=== PATIENT | female | born 1945 | race Caucasian/White ===

== ENCOUNTER 2016-10-19 19:41 | Emergency (ER) | payer OTHER, BC ==
[~2016-10-19] VITALS: Ht 154.9 cm; Wt 67.0 kg
[~2016-10-19 19:41] MED LIST: ACTOS15 MG PO; ASPIR 8181 M1 PO; ASPIRIN81 M1 PO; AUGMENTIN875 MG PO; Ascorbic Acid,Ester- PO; CALCIUM500 M3 PO; CITALOPRAM HBR20 MG PO; CYANOCOBALAM1000 MCG PO; CYMBALTA60 MG PO; Cymbalta PO; DEXILANT60 MG PO; DIABETA,MICRONAS5 MG PO; DIABETA5 MG PO; Diabeta,Micronase PO; Evista PO; FEXOFENADINE H180 M1 PO; FIBER CAPSULE PO; FIBERCON625 MG PO; FOLIC ACID0.4 MG PO; FOLIC ACID0.8 MG PO; FOLIC ACID1 MG PO; Folvite PO; GEMFIBROZIL600 MG PO; GLYBURIDE5 MG PO; HUMIRA40 MG/0.8 SC; HYDROCODON-ACE1 EAC7 PO; IMDUR30 MG PO; INFUSION IV; JANUVIA100 MG PO; JANUVIA25 M1 PO; LIPITOR40 MG PO; LO-DOSE ASPIRIN81 M1 PO; LOPID600 MG PO; LOPRESSOR25 MG PO; METFORMIN HCL1000 MG PO; METHOTREXATE2.5 MG PO; METOPROLOL TART50 MG PO; MULTIVITAMIN1 EAC1 PO; PLAVIX75 MG PO; PROTONIX40 MG PO; REGLAN5 MG PO; REQUIP0.5 MG PO; SOTALOL80 MG PO; TOPROL XL50 MG PO; URECHOLINE25 MG PO; VITAMIN B12 PO; VITAMIN B12-FO1 EACH PO; VITAMIN D-32000 UNI2 PO; VITAMIN D2000 INTUN PO; VITAMIN D35000 UNIT PO; XANAX0.25 MG PO; ZANTAC150 MG PO; [UNRECOGNIZED DRUG - OTHER] IV
[2016-10-19 20:27] LABS: HEMATOCRIT 25.1 % (36.0-46.0); MCH 34.5 PG (29.0-34.0); MCHC 34.7 G/DL (30.0-36.0); MCV 99.6 FL (83-99); MEAN PLAT.VOLUME 10.9 uM^3 (9.5-12.4); PLATELET COUNT 81 K/uL (156-360); RBC DIS.WIDTH-CV 14.5 % (11.8-14.6); RBC DIS.WIDTH-SD 50.2 % (39-53); RED BLOOD COUNT 2.52 M/uL (3.80-5.20); WHITE BLOOD COUNT 3.1 K/uL (4.1-10.2)
[2016-10-19 20:34] LABS: INTER. NORMALIZED RATIO 1.1; PROTHROMBIN TIME 12.1 SEC (10.2-12.9)
[2016-10-19 20:36] LABS: CHLORIDE 103 mEq/L (99-109); POTASSIUM 4.6 mEq/L (3.7-5.4); SODIUM 135 mEq/L (136-147)
[2016-10-19 20:37] LABS: PTT 21.6 SEC (25-37)
[2016-10-19 20:38] LABS: GLUCOSE 168 mg/dL (70-99)
[2016-10-19 20:39] LABS: ANION GAP 12 MEQ/L (2-14)
[2016-10-19 20:40] LABS: TOTAL BILIRUBIN 0.6 mg/dL (0.0-1.0)
[2016-10-19 20:41] LABS: ALKALINE PHOSPHATASE 84 IU/L (3-129)
[2016-10-19 20:42] LABS: GFR ESTIMATE (CALCULATED) 52 mL/min/
[2016-10-19 20:43] LABS: UREA NITROGEN (BUN) 11 mg/dL (9-23)
[2016-10-19 23:06] VITALS: BP 119/56
== END 2016-10-19 23:30 | disposition home or self-care (01) ==
LOC: EME 19:41
PROVIDERS: Emergency Medicine
DX: D61.818 Other pancytopenia (principal); D64.9 Anemia, unspecified; I25.2 Old myocardial infarction; E11.9 Type 2 diabetes mellitus without complications; I10 Essential (primary) hypertension; E78.5 Hyperlipidemia, unspecified; Z95.5 Presence of coronary angioplasty implant and graft; Z95.0 Presence of cardiac pacemaker; K21.9 Gastro-esophageal reflux disease without esophagitis; F32.9 Major depressive disorder, single episode, unspecified; Z87.891 Personal history of nicotine dependence; Z79.84 Long term (current) use of oral hypoglycemic drugs; Z88.6 Allergy status to analgesic agent; Z85.42 Personal history of malignant neoplasm of other parts of uterus; Z79.899 Other long term (current) drug therapy
CPT/HCPCS: 80053; 85027; 85610; 85730; 86900; 86901; 93005; 99281; 99285; J7030

== ENCOUNTER 2017-02-18 11:39 | Emergency (ER) | payer OTHER, BC ==
[~2017-02-18] VITALS: Ht 154.9 cm; Wt 62.1 kg
[2017-02-18 16:44] VITALS: BP 150/78
== END 2017-02-18 16:51 | disposition home or self-care (01) ==
LOC: EME 11:39
DX: R04.0 Epistaxis (principal); R06.7 Sneezing; R05 Cough; I10 Essential (primary) hypertension; E78.5 Hyperlipidemia, unspecified; E11.9 Type 2 diabetes mellitus without complications; Z79.84 Long term (current) use of oral hypoglycemic drugs; Z95.0 Presence of cardiac pacemaker; Z95.5 Presence of coronary angioplasty implant and graft; Z79.82 Long term (current) use of aspirin; Z85.42 Personal history of malignant neoplasm of other parts of uterus; Z90.710 Acquired absence of both cervix and uterus; Z87.891 Personal history of nicotine dependence
CPT/HCPCS: 99281; 99284

== ENCOUNTER 2017-07-10 20:15 | Emergency (ER) | payer OTHER, BC ==
[~2017-07-10] VITALS: Ht 154.9 cm; Wt 63.3 kg
[2017-07-10 20:22] VITALS: BP 113/61
== END 2017-07-10 22:05 | disposition left against medical advice (07) ==
LOC: EME 20:15
DX: R04.0 Epistaxis (principal); Z79.82 Long term (current) use of aspirin; Z53.21 Procedure and treatment not carried out due to patient leaving prior to being seen by health care provider

== ENCOUNTER 2017-09-09 03:09 | Observation (INO) | payer OTHER, BC ==
[~2017-09-09] VITALS: Ht 154.9 cm; Wt 63.7 kg
[2017-09-09 03:33] LABS: HEMOGLOBIN 11.3 G/DL (11.9-15.5); MCH 32.3 PG (29.0-34.0); MCHC 36.5 G/DL (30.0-36.0); MCV 88.6 FL (83-99); PLATELET COUNT 112 K/uL (156-360); RBC DIS.WIDTH-CV 12.1 % (11.8-14.6); RBC DIS.WIDTH-SD 38.6 % (39-53); WHITE BLOOD COUNT 9.2 K/uL (4.1-10.2)
[2017-09-09 03:46] LABS: ALBUMIN 2.9 g/dL (3.2-4.8)
[2017-09-09 03:47] LABS: CHLORIDE 91 mEq/L (99-109); POTASSIUM 3.6 mEq/L (3.7-5.4); SODIUM 126 mEq/L (136-147)
[2017-09-09 03:49] LABS: GLUCOSE 283 mg/dL (70-99); TOTAL PROTEIN 6.1 g/dL (6.4-8.3)
[2017-09-09 03:51] LABS: TOTAL BILIRUBIN 0.3 mg/dL (0.0-1.0)
[2017-09-09 03:52] LABS: ALKALINE PHOSPHATASE 91 IU/L (3-129); CREATININE 0.8 mg/dL (0.6-1.3); GFR ESTIMATE (CALCULATED) > 59 mL/min/
[2017-09-09 03:54] LABS: AST (GOT) 15 IU/L (2-34); UREA NITROGEN (BUN) 12 mg/dL (9-23)
[2017-09-09 03:55] LABS: ALT (GPT) 8 IU/L (3-49); CREATINE KINASE 32 IU/L (1-294)
[2017-09-09 04:01] LABS: TROP-I INTERPRETATION NEGATIVE; TROPONIN-I 0.12 ng/mL (0.0-0.30)
[2017-09-09] MEDS ORDERED: CYMBALTA60 MG PO (07:52)
[2017-09-09 09:09] VITALS: BP 167/70
[2017-09-09 10:11] LABS: TROP-I INTERPRETATION INDETERMINATE; TROPONIN-I 0.37 ng/mL (0.0-0.30)
[2017-09-09 10:15] LABS: CHLORIDE 95 MEQ/L (99-109); CREATININE 0.6 MG/DL (0.6-1.3); GFR ESTIMATE (CALCULATED) > 59 mL/min/; GLUCOSE 276 mg/dL (70-99); MAGNESIUM 1.4 mg/dl (1.3-2.7); POTASSIUM 4.1 MEQ/L (3.7-5.4); SODIUM 129 MEQ/L (136-147); UREA NITROGEN (BUN) 9 mg/dL (9-23)
[2017-09-09 12:52] VITALS: BP 157/67
[2017-09-09 15:46] VITALS: BP 154/83
[2017-09-09 16:07] LABS: TROP-I INTERPRETATION NEGATIVE; TROPONIN-I 0.28 ng/mL (0.0-0.30)
[2017-09-09 19:00] VITALS: BP 140/64
[2017-09-09 23:51] VITALS: BP 157/68
[2017-09-10 03:49] VITALS: BP 123/60
[2017-09-10 07:00] VITALS: BP 133/68
[2017-09-10 08:54] LABS: CHLORIDE 95 MEQ/L (99-109); CREATININE 0.8 MG/DL (0.6-1.3); GFR ESTIMATE (CALCULATED) > 59 mL/min/; GLUCOSE 221 mg/dL (70-99); POTASSIUM 4.2 MEQ/L (3.7-5.4); SODIUM 130 MEQ/L (136-147); UREA NITROGEN (BUN) 10 mg/dL (9-23)
[2017-09-10 12:05] VITALS: BP 145/70
[2017-09-10] MEDS ORDERED: SOTALOL80 MG PO (13:45)
== END 2017-09-10 15:30 | disposition home or self-care (01) ==
LOC: EME → EDBD 03:09 → EDOF 07:37 → 4SOUTH 07:37 → EDOF 07:37 → ENRESERV 07:43 → 4SOUTH 08:53
PROVIDERS: Emergency Medicine; Internal Medicine; Physician Assistant Medical
DX: E87.6 Hypokalemia (principal); E87.1 Hypo-osmolality and hyponatremia; R00.2 Palpitations; I48.0 Paroxysmal atrial fibrillation; I47.2 Ventricular tachycardia; Z95.810 Presence of automatic (implantable) cardiac defibrillator; I25.10 Atherosclerotic heart disease of native coronary artery without angina pectoris; R79.89 Other specified abnormal findings of blood chemistry; E11.9 Type 2 diabetes mellitus without complications; I10 Essential (primary) hypertension; E78.5 Hyperlipidemia, unspecified; Z98.890 Other specified postprocedural states; D64.9 Anemia, unspecified; Z87.891 Personal history of nicotine dependence; Z82.49 Family history of ischemic heart disease and other diseases of the circulatory system; M06.9 Rheumatoid arthritis, unspecified; Z86.73 Personal history of transient ischemic attack (TIA), and cerebral infarction without residual deficits; Z79.82 Long term (current) use of aspirin; Z79.899 Other long term (current) drug therapy; Z79.84 Long term (current) use of oral hypoglycemic drugs; Z88.8 Allergy status to other drugs, medicaments and biological substances; Z82.3 Family history of stroke; Z83.3 Family history of diabetes mellitus; Z80.0 Family history of malignant neoplasm of digestive organs
CPT/HCPCS: 71045; 80048; 80048 91; 80053; 82550; 82948; 83735; 84484; 85027; 93005; 99281; 99285; G0378; J1815; J3475; J7030